=== PATIENT | male | born 1995 | race Caucasian/White ===

== ENCOUNTER 2016-09-17 17:22 | Emergency (ER) | payer BC ==
[2016-09-17 18:56] VITALS: BP 139/74
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
--- NOTE | 2016-09-18 14:03 | US ---
INDICATION: Pain left testicle. ULTRASOUND SCROTUM AND CONTENTS: Multiple ultrasonic images were obtained 09/17 and revealed the testicles to measure 3.7 x 3.2 x 2.3 cm on the right and 4.5 x 2.6 x 2.2 cm on the left. Similar normal blood flow is noted at the testicles bilaterally. The testicles appear to be fairly similar in size and texture and shape, with no focal mass lesions identified. No finding to strongly suggest epididymitis, orchitis, or torsion was seen. No definite posttraumatic change is seen. A small hydrocele noted on the left with echogenic fluid. This could be on the basis of posttraumatic change or possibly infection, but should be correlated clinically since no significant increase in blood flow is noted on the left. A similar small hydrocele is noted on the right. IMPRESSION: Essentially normal scrotal ultrasound. Small hydroceles with echogenic fluid bilaterally of questionable significance. Findings do not suggest torsion, epididymitis, or orchitis. [facility]
== END 2016-09-17 18:54 | disposition home or self-care (01) ==
LOC: FB.ED 17:22
DX: N45.1 Epididymitis (principal)
CPT/HCPCS: 76870; 81001; 99284